=== PATIENT | female | born 1965 | race African-American/Black ===

== ENCOUNTER 2024-06-04 03:11 | Emergency (ER) | payer SELFPAY ==
[~2024-06-04] VITALS: Ht 165.1 cm; Wt 100.0 kg
[2024-06-04 03:15] VITALS: TEMP 98.4; O2SAT 100
[2024-06-04] MEDS ORDERED: TRAM50TA3 MT (06:15)
[2024-06-04 06:30] VITALS: BP 119/81; PULSE 56; RESP 18
[2024-06-04] MEDS: TRAMADOL 50MG TABLET PO ONE (06:30)
== END 2024-06-04 06:54 | disposition home or self-care (01) ==
LOC: ER 03:28
DX: M79.606 Pain in leg, unspecified (principal); I10 Essential (primary) hypertension; E78.00 Pure hypercholesterolemia, unspecified; E11.9 Type 2 diabetes mellitus without complications; Z88.0 Allergy status to penicillin; Z86.39 Personal history of other endocrine, nutritional and metabolic disease
CPT/HCPCS: 99283